=== PATIENT | female | born 1960 | race Caucasian/White ===

== ENCOUNTER → 2021-07-16 01:30 | Outpatient (CLI) | payer MEDICARE, SELFPAY ==
--- NOTE | 2021-07-16 07:50 | DI.RAD_ITS ---
Exam(s) XR HIP RT COMPLETE AP PELVIS EXAM: XR HIP RT COMPLETE AP PELVIS CLINICAL HISTORY: r hip pain, M25.551 TECHNIQUE: COMPARISON: CR PELVIS AP from 06/28/2013 FINDINGS: Two views were obtained. There is a total hip joint replacement position on the left. On the right, there is severe narrowing of the cartilaginous joint space of the hip superiorly. There is flatteni ng of the superior aspect of the femoral head. There are areas of subchondral sclerosis and cyst for mation of the acetabulum and femoral head and there are moderate marginal osteophytes of these bones. IMPRESSION: Severe DJD right hip RADIATION DOSE DELIVERED: Total DLP
== END ==
PROVIDERS: PCP Family Medicine; Visit Provider Family Medicine
DX: M25.551 Pain in right hip (principal); M16.11 Unilateral primary osteoarthritis, right hip; Z96.642 Presence of left artificial hip joint
CPT/HCPCS: 73502

== ENCOUNTER 2021-12-12 11:38 | Outpatient (CLI) | payer MEDICARE, SELFPAY ==
--- NOTE | 2021-12-12 11:15 | DI.RAD_ITS ---
Exam(s) XR PELVIS AP EXAM: XR PELVIS AP CLINICAL HISTORY: right hip DJD TECHNIQUE: COMPARISON: CR XR HIP RT COMPLETE AP PELVIS from 07/16/2021 FINDINGS: AP view of the pelvis was obtained. There is a total hip joint replacement position on the left. Th ere are severe degenerative changes of the right hip with marked loss of the cartilaginous joint spac e and subchondral sclerosis and cyst formation of the femoral head and acetabulum with some deformity of the femoral head superiorly. IMPRESSION: Severe DJD right hip. RADIATION DOSE DELIVERED: Total DLP
== END 2021-12-12 11:39 | disposition home or self-care (01) ==
LOC: DIORS 11:38
PROVIDERS: PCP Family Medicine; Referring Provider Family Medicine; Visit Provider Physician Assistant
DX: M16.11 Unilateral primary osteoarthritis, right hip (principal)
CPT/HCPCS: 99202; 72170

== ENCOUNTER 2022-02-20 02:13 | Outpatient (CLI) | payer MEDICARE, SELFPAY ==
[2022-02-20 13:46] LABS: HCT 42.6 % (36.0-46.0); HGB 13.7 g/dL (11.2-15.7); MCH 28.9 pg (27.0-33.0); MCHC 32.2 % (32.0-36.0); MCV 90 fL (80-95); MPV 10.9 fL (8.0-11.0); Platelet Count 274 10^3/uL (130-400); RBC 4.74 10^6/uL (3.93-5.22); RDW 14.7 % (11.7-14.6); RDW-SD 48.6 fL; WBC 8.62 10^3/uL (4.4-10.8)
[2022-02-20 14:01] LABS: Anion Gap 8.1 mmol/L (3-11); BUN 18 mg/dL (7-18); CO2 28.9 mmol/L (21.0-32.0); CREATININE 0.7 mg/dL (0.55-1.02); Calcium 9.2 mg/dL (8.5-10.1); Chloride 104 mmol/L (98-107); Estimated GFR 97.72 (mL/min/1.73m2); Glucose 110 mg/dL (74-106); Potassium 3.4 mmol/L (3.5-5.1); Sodium 141 mmol/L (136-145)
== END 2022-02-20 02:14 | disposition home or self-care (01) ==
LOC: LBO 02:13
PROVIDERS: PCP Family Medicine; Visit Provider Student in an Organized Health Care Education/Training Program
DX: M16.11 Unilateral primary osteoarthritis, right hip (principal); Z01.818 Encounter for other preprocedural examination
CPT/HCPCS: 36415; 80048; 85027

== ENCOUNTER 2022-03-04 05:52 | Day surgery (SDC) | payer MEDICARE, SELFPAY ==
[2022-03-04] VITALS (12 sets, daily range): BP systolic 107–149; BP diastolic 54–95; PULSE 76–98; RESP 11–18; TEMP 36.2–36.6; O2SAT 95–100; BMI 43.0
[2022-03-04] MEDS: Acetaminophen 500 MG TAB 1000 MG PO (06:38)
[2022-03-04] MEDS: Celecoxib 200 MG CAP 400 MG PO (06:38)
--- NOTE | 2022-03-04 06:51 | W.ANESPRE ---
General Info Date of Service Date Performed: 03/04/22 Height: 5 ft 1.5 in Weight: 104.9 kg Body Mass Index (BMI): 43.0 Surgical Procedure: Operation Date: 03/04/22 07:50 Proposed Procedure Side Surgeon p Hip Total Hip Anterior ACTIS (Standard Sz 4/5) Right Joseluis Wick MD Meds Allergies and Home Medications Allergies Allergy/AdvReac Type Severity Reaction Status Date / Time Latex, Natural Rubber AdvReac Intermediate breaks out Verified 03/04/22 06:20 aripiprazole [From Abilify] AdvReac Headache Verified 03/04/22 06:20 erythromycin base AdvReac N/V Verified 03/04/22 06:20 fluoxetine [From Prozac] AdvReac Giraldo Verified 03/04/22 06:20 quetiapine fumarate AdvReac Headaches Verified 03/04/22 06:20 [From Seroquel] Home Medication Medication Instructions Recorded [id number]-dteiopzx-hyalur 1 ea PO DAILY 05/17/12 ac 375 mg-300 mg-175 mg-2 mg cap Lactobacillus comb 1 tab PO DAILY 03/07/13 [id number] 300 million cell-250 mg capsule (Probiotic and Acidophilus) cholecalciferol (vitamin D3) 10 See Rx Instructions PO DAILY 06/19/20 mcg (400 unit) tablet (Vitamin D3) hydrochlorothiazide 12.5 mg tablet 12.5 mg PO QAM #90 tabs 07/08/21 Current Visit Medications: Current Medications Generic Name Dose Route Start Last Admin Trade Name Freq PRN Reason Stop Dose Admin Acetaminophen 1,000 mg 03/04/22 06:00 03/04/22 06:38 Acetaminophen 500 Mg Tab PO 03/04/22 16:00 1,000 mg PREOP JEANA Administration Celecoxib 400 mg 03/04/22 06:00 03/04/22 06:38 Celecoxib 200 Mg Cap PO 03/04/22 16:00 400 mg PREOP JEANA Administration Tranexamic Acid 1,000 mg/ 60 mls @ 360 mls/hr 03/04/22 06:00 Sodium Chloride IV 03/04/22 16:00 PREOP JEANA Ringer's Solution 1,000 mls @ 80 mls/hr 03/04/22 06:00 IV 04/02/22 23:59 INFUSION JEANA Cefazolin Sodium/Dextrose 2 gm in 50 mls @ 100 mls/hr 03/04/22 06:00 Ancef Duplex IVPB 03/04/22 16:00 PREOP JEANA IV Miscellaneous Supplies 1 each 03/04/22 06:00 Iv Access IV 04/02/22 23:59 DIRECTED JEANA Sodium Chloride 0 ml 03/04/22 06:00 Normal Saline Flush 10 Ml Syr IV 04/02/22 23:59 PRN PRN Sodium Chloride 0 ml 03/04/22 06:00 Normal Saline 10 Ml Vial IJ 04/02/22 23:59 DIRECTED PRN Sterile Water 0 ml 03/04/22 06:00 Water,Injection,Sterile 10 Ml Vial IJ 04/02/22 23:59 DIRECTED PRN PFSH Active Problems Active Problems: Problem Status Onset Code Vitamin D deficiency E55.9 Anxiety and depression F41.8 Decreased libido R68.82 Depressive disorder 10/04/12 F32.9 Exposure to hepatitis C Z20.5 Fatigue R53.83 Increased BMI R63.8 Malignant melanoma of skin C43.9 Smoking history Z87.891 Toenail deformity L60.8 Toenail fungus B35.1 Right hip pain M25.551 Degenerative joint disease of right hip M16.11 Skin lesion L98.9 Medical History Medical History Borderline high cholesterol Cholelithiasis w/out obstruction Cholelithiasis without obstruction Closed fracture of clavicle Dysfunctional uterine bleeding endometrial bx-neg. Pelvic U/S-increased. endometrialstripe; now 1 year w/o a period. Hip pain 10/04/12 Osteoarthrosis; end stage; s/p Left hip Arthroplasty Hip pain (10/04/12) History of ectopic History of fracture of clavicle age 1 History of fracture of clavicle Hx of ectopic Pneumonia 04/15/07 organism unspecified, unspecified bilaterality, unspecified part of lung. Pneumonia, organism unspecified (04/15/07) Unspecified part of closed fracture of clavicle Medical History Comments:: pt. extremely anxious today, states she has been at home the last thirty years with anxiety and depression-so this is a very stressful time for her Surgical History Surgical History (Updated 03/04/22 @ 06:22 by Cathy Dias) Endometrial Biopsy DUB with negative endometrial biopsy, increased endometrial stripe on Provera H/O total cystectomy right axillary region History of bilateral tubal ligation 02/23/07 History of gynecologic surgery endometrial biopsy; DUB w/neg endometrial biopsy, increased endometrial stripe on Provera. History of removal of cyst Right leg - near knee Dr. Darden ~2009 Hx of cholecystectomy PROCEDURES Clavicle fracture at age 1 Removal of right cyst and axillary region. S/P cholecystectomy 02/23/83 Status post THR (total hip replacement) (03/16/13) Done by Dr. Mcpherson with cementless fixation. Tobacco Smoking/Tobacco Use Status: Current every day Tobacco Type: cigarettes Smoking cigarettes per day: 30 Passive smoking exposure: Yes Second hand exposure: Yes Alcohol Alcohol Intake: never Substance Use Substance use: Occasionally Substance use type: marijuana Details: marijuana: t-1, hits off a bowl Vital Signs and Lab Results Vital Signs Most Recent Vital Signs in EMR: Most Recent Vital Signs Temp Pulse Resp BP Pulse Ox 36.6 C 98 H 18 149/95 H 97 03/04/22 06:27 03/04/22 06:27 03/04/22 06:27 03/04/22 06:27 03/04/22 06:27 Lab Results Blood Type / Crossmatch: No Data to Display Complete Blood Count: White Blood Count 8.62 10^3/uL (4.4-10.8) 02/20/22 13:37 Red Blood Count 4.74 10^6/uL (3.93-5.22) 02/20/22 13:37 Hemoglobin 13.7 g/dL (11.2-15.7) 02/20/22 13:37 Hematocrit 42.6 % (36.0-46.0) 02/20/22 13:37 Platelet Count 274 10^3/uL (130-400) 02/20/22 13:37 Complete Metabolic Panel: Sodium 141 mmol/L (136-145) 02/20/22 13:37 Potassium 3.4 mmol/L (3.5-5.1) L 02/20/22 13:37 Chloride 104 mmol/L (98-107) 02/20/22 13:37 Carbon Dioxide 28.9 mmol/L (21.0-32.0) 02/20/22 13:37 BUN 18 mg/dL (7-18) 02/20/22 13:37 Creatinine 0.7 mg/dL (0.55-1.02) 02/20/22 13:37 Est GFR (CKD-EPI 2020) 97.72 (mL/min/1.73m2) 02/20/22 13:37 Calcium 9.2 mg/dL (8.5-10.1) 02/20/22 13:37 Glucose 110 mg/dL (74-106) H 02/20/22 13:37 Liver Function Panel: No Data to Display Coagulation Panel: No Data to Display Cardiac Panel: No Data to Display Arterial Blood Gas: No Data to Display Venous Blood Gas: No Data to Display Pancreas Panel: No Data to Display Thyroid Panel: No Data to Display Infectious Disease: No Data to Display Blood Cultures: No Data to Display Toxicology Panel: No Data to Display Anesthesia Assessment and Plan Anesthesia History Personal History: No History of Anesthesia Complications Family History: No Family History of Anesthesia Complications Exercise Tolerance Exercise Tolerance: Unknown Pertinent Negatives Pertinent Negatives: No Symptoms of GERD Cardiac & Pulmonary Exam Cardiac Exam: Normal S1/S2 Heart Sounds Pulmonary Exam: Clear Bilateral Breath Sounds Implantable Cardiac Device Does patient have a Pacemaker or an ICD?: No Airway Exam Known Difficult Airway: No Mallampati Class: 3 Mouth Opening: Normal (> 3cm) Thyromental Distance: Greater than 3 cm Neck Range of Motion: Full ROM Neck Circumference: Thick Teeth Condition: Generalized Poor Dentition (Missing bottom right molars) ASA Classification ASA Score: ASA 3 Emergency Case?: No NPO Status NPO Status: NPO Clears >2 hours, Solids >8 hours Anesthesia Plan Resuscitation Status: Full Code Anesthesia Technique: Spinal Anesthesia Airway Planned: Natural Airway Pain Management: Intrathecal Analgesia Monitors Used: Standard Monitors
[2022-03-04] MEDS: Lactated Ringers 1,000 ML 80 ML IV (07:00)
--- NOTE | 2022-03-04 07:19 | W.PM.DS.N ---
Date of service: 03/04/22 Time of Service: 11:58 DS: Diagnosis Discharge Diagnosis (1) Degenerative joint disease of right hip: Status: Acute Discharge Plan Disposition Patient Disposition: Home Condition: Good Discharge Details Reason For Visit: Right hip DJD Attending Provider: Joseluis Wick Primary Care Provider: Maritza Conde Home Meds and New Rx's Prescriptions: New celecoxib [Celebrex] 200 mg capsule 200 mg PO BID Qty: 30 0RF aspirin 81 mg tablet,delayed release (DR/EC) 81 mg PO BID 30 Days Qty: 60 0RF acetaminophen 500 mg tablet 500 mg PO Q6H PRN (Reason: pain) Qty: 60 2RF pantoprazole 40 mg tablet,delayed release (DR/EC) 40 mg PO DAILY Qty: 14 0RF dexamethasone 4 mg tablet 4 mg PO DAILY Qty: 2 0RF Rx Instructions: Take one tablet once daily for two days docusate sodium [Colace] 100 mg capsule 100 mg PO BID Qty: 30 0RF oxycodone 5 mg tablet 5 mg PO Q6H PRN (Reason: severe post-operative pain) Qty: 12 0RF Rx Instructions: Take one tablet up to every 6 hours as needed for severe pain Continued hydrochlorothiazide 12.5 mg tablet 12.5 mg PO QAM Qty: 90 4RF glucosam-chond pf-ylkmlj-ma ac 1 EACH capsule 1 ea PO DAILY cholecalciferol (vitamin D3) [Vitamin D3] 10 mcg (400 unit) tablet See Rx Instructions PO DAILY Rx Instructions: For a total of 3000 units daily. aj Probiotic and Acidophilus 1 EACH capsule 1 tab PO DAILY Discharge Instructions Additional Instructions: Total Hip Discharge Instructions Activity: The most important activity is to walk. You should try to take short walks a few times a day. You have no restrictions on movement or positioning, but do not try to force what you do. You will find some stiffness and weakness with hip flexion (lifting your knee). Do not try to strengthen this too early, continue to practice walking and stairs and this will come. - Outpatient physical therapy can be helpful to help return you to a normal gait and improve your flexibility and strength. This can start around 2 weeks. For some patients, it?s not necessary. Usually this is determined at the time of discharge or at the first post-operative visit. - You should wear the YAYA hose on both legs for 2 weeks. Dressing: Keep the surgical dressing in place for at least one week. After the first week it may be removed and replace with light gauze and tape or nothing. It may get wet after 3 days but avoid soaking the dressing. If it gets wet, just lightly pat dry. It is important to always keep some gauze between skin folds, especially when you are sitting. Spend some time with the wound exposed when you are lying flat as the incision does wrinkle onto itself. Medications: - You should take Tylenol and an anti-inflammatory Celebrex as your primary pain control medications. If the Celebrex is too expensive or not covered, please call the office for another alternative (Advil/Ibuprofen or Naproxen/Aleve). - You have been prescribed a stronger pain medication Oxycodone for breakthrough pain, take as needed as prescribed. - You have also been prescribed a stomach acid reduction agent Pantoprozole to help reduce stomach acid and reflux. - You have also been prescribed Decadron to help with post-operative nausea and pain. You will take this for two days starting tomorrow. - You will be taking Aspirin 81mg twice a day for DVT prevention unless instructed otherwise. - If you have constipation you should take Colace (which has been prescribed)or Miralax (which is available [id number]). It takes most people 3-4 days to have a bowel movement. Follow-up: 2 weeks If you have any acute concerns or questions, please do not hesitate to contact the office at [phone]. You may contact Dr. Wick with any questions after hours through the hospital at [phone] or on his cell phone at [phone]. Stand Alone Forms: Anesthesia Discharge Inst., [place] ([facility]) Referrals: Joseluis Wick MD [ [facility] STAFF PHYSICIAN] - Equipment/Supplies: Walker Activity:: Elevate Remove Dressings/Wound Care:: Do Not Remove Shower/Bathe:: Cover Diet:: As Tolerated Discharge Orders Discharge Orders: Discharge Order (Routine); Ordered 03/04/22 Ordered By: Joseluis Wick DS: Summary Time Spent with Patient providing and/or coordinating discharge services: Less than 30 minutes Status at Discharge Functional status at discharge: uses cane/walker Overall status at discharge: patient is progressing back to baseline Mental Status: mental status grossly normal Speech and Movement: speech and movement normal Mood: congruent mood Affect: normal affect Exam Psych Mental Status: mental status grossly normal Speech and Movement: speech and movement normal Mood: congruent mood Affect: normal affect DS: Data Vitals/I&O Vitals and I&O: Vital Signs Temperature 97.9 F 03/04/22 06:27 Pulse 98 H 03/04/22 06:27 Pulse Rhythm Regular 03/04/22 06:27 Respiratory Rate 18 03/04/22 06:27 Blood Pressure 149/95 H 03/04/22 06:27 Pulse Oximetry 97 03/04/22 06:27 Oxygen Delivery Method Room Air 03/04/22 06:27 Oxygen Flow Rate 0 03/04/22 06:27 Pain Level 3 03/04/22 06:27 Intake & Output 03/03/22 03/03/22 03/04/22 11:59 23:59 11:59 Weight 232 lb 15.999 oz 231 lb 4.238 oz PFSH All Active Problems Vitamin D deficiency (Chronic) Anxiety and depression (Chronic) Decreased libido (Chronic) Depressive disorder (Chronic 10/04/12) Exposure to hepatitis C (Chronic) Partner with Hep C Fatigue (Chronic) Increased BMI (Chronic) Malignant melanoma of skin (Chronic) ON THE RIGHT; 2004 Smoking history (Acute) Toenail deformity (Acute) Toenail fungus (Acute) Right hip pain (Acute) Degenerative joint disease of right hip (Acute) Skin lesion (Acute) Medical History Borderline high cholesterol Cholelithiasis w/out obstruction Cholelithiasis without obstruction Closed fracture of clavicle Dysfunctional uterine bleeding endometrial bx-neg. Pelvic U/S-increased. endometrialstripe; now 1 year w/o a period. Hip pain 10/04/12 Osteoarthrosis; end stage; s/p Left hip Arthroplasty Hip pain (10/04/12) History of ectopic History of fracture of clavicle age 1 History of fracture of clavicle Hx of ectopic Pneumonia 04/15/07 organism unspecified, unspecified bilaterality, unspecified part of lung. Pneumonia, organism unspecified (04/15/07) Unspecified part of closed fracture of clavicle Surgical History Endometrial Biopsy DUB with negative endometrial biopsy, increased endometrial stripe on Provera H/O total cystectomy right axillary region History of bilateral tubal ligation 02/23/07 History of gynecologic surgery endometrial biopsy; DUB w/neg endometrial biopsy, increased endometrial stripe on Provera. History of removal of cyst Right leg - near knee Dr. Darden ~2009 Hx of cholecystectomy PROCEDURES Clavicle fracture at age 1 Removal of right cyst and axillary region. S/P cholecystectomy 02/23/83 Status post THR (total hip replacement) (03/16/13) Done by Dr. Mcpherson with cementless fixation. Family History Mother Heart disease CREST Mental disorder depression Father Diabetes Essential hypertension Personal history of malignant neoplasm PANCREATIC Hyperlipidemia Sister Essential hypertension Mental disorder depression Sister Mental disorder deperession Brother Hyperlipidemia Multiple sclerosis Grandfather Personal history of malignant neoplasm LUNG Grandfather No problems noted. Grandmother Heart disease Mental disorder depression Asthma Grandmother No problems noted. Social History Smoking/Tobacco Use Status: Current every day Tobacco Type: cigarettes Tobacco: How many years used: 40 Quit status: considering quitting Second Hand Exposure: Yes Smoking risk assessment performed?: Yes Alcohol Intake: never Drug use: Occasionally Substance use type: marijuana Details: marijuana: t-1, hits off a bowl Caregiver/Support person: Yes Household members: spouse Housing: house Communication Needs: None Do you need help understanding health information?: Rarely Do you think of yourself as: straight/heterosexual Current gender identity: female What is your relationship status?: Panel score (0-1 are the most socially isolated patients): 1 Duration: 15-30 minutes/day Frequency: 5-6 times per week Firearms in home: Yes (KEPT IN CAB[employer]) Firearms unloaded and locked: No Do you feel safe at home: Yes Do you feel safe in your relationship?: Yes Time Spent with Patient Time Spent with Patient: <45 minutes Time was spent: obtaining and/or reviewing separately otained hiistory and referring, communicating with other health hospice care consultant
[2022-03-04] MEDS: ceFAZolin 2 GM/50 ML BAG IVPB (07:35)
--- NOTE | 2022-03-04 09:04 | DI.RAD_ITS ---
Exam(s) XR HIP RT IN OR EXAM: XR HIP RT IN OR CLINICAL HISTORY: total hip TECHNIQUE: 2D and realtime digital imaging was performed. CONTRAST MATERIAL: Refer to procedure report. COMPARISON: CR XR PELVIS AP from 12/12/2021 FINDINGS: Fluoroscopy was provided for Dr. Wick during the performance of a right hip replacement. Please refer to the procedure report for complete details. Ka,r=7.95 mGy IMPRESSION: RADIATION DOSE DELIVERED:
--- NOTE | 2022-03-04 09:27 | W.PM.OP ---
Date of service: 03/04/22 Time of Service: 09:27 Operative Note Operative Note DATE OF PROCEDURE: 03/04/22 PRE-OP DIAGNOSIS: Right Hip Osteoarthritis POST-OP DIAGNOSIS: same PROCEDURE: Right Anterior Total Hip Arthroplasty with Intraoperative Navigation SURGEON: Joseluis Wick COST ACCOUNTING CLERK: Jackelyn Cook ANESTHESIA TYPE: Spinal Refer to Anesthesia Record ESTIMATED BLOOD LOSS: 100 PATHOLOGY: none sent TOURNIQUET TIME: 0 COMPLICATIONS: None Patient was transported to: PACU Patient's condition: stable Implants: 1. Depuy Brandt Acetabular Component, 48mm 2. Depuy Acetabular Liner, 76p90sk 3. Depuy Actis Standard Collared Femoral Stem, Size 4 4. Depuy Altrx Ceramic Femoral Head, Size 32+5mm Indications: I have seen Naheed in clinic for symptoms of hip arthritis, confirmed with radiographic findings. She has exhausted nonoperative methods and was having significant limitations in daily function and desired better function and less pain. I discussed the technical details of a hip replacement. I explained the risks of the procedure to include, but not limited to, bleeding, infection, pain, stiffness, fracture, damage to nerves and vessels, damage to muscles and tendons, loosening, instability, leg length inequality, need for repeat procedure, blood clot and cardiopulmonary demise. Despite these risks, Naheed elected to proceed. Findings: There was significant signs of arthritis throughout the hip. There was complete loss of cartilage from the femoral head and a large floor osteophyte. Procedure Description: Naheed was greeted in the preoperative holding area where the correct side was identified and marked. The consent was reviewed with the patient and signed. The history and physical was updated. All questions were answered. She was taken back to the operating room. A spinal anesthestic was then administered. The feet were wrapped with cast padding and Coban and then placed into the boot liners and then into the boots. Care was taken to protect the skin and make sure the heels were fully down and the boots were stable. The patient was then positioned onto the HANA table. Both legs were held in a neutral position. SCDs were applied. The patient was then slid down onto a peroneal post. Prophylactic antibiotics in the form of Cefazolin were administered. 1g of Tranxemic Acid was given intravenously within 30 minutes of incision. The right leg was then prepped with Chloraprep and draped in a standard fashion. A second prep with Chloraprep was performed prior to placement of a shower-curtain type drape with Iodine impregnated skin protection. A timeout to confirm correct identity, side and site, procedure, allergies, anesthesia, and medical concerns was performed. An obliquely oriented incision was made starting lateral to the ASIS and running distal over the Tensor Fascia Zeny (TFL) muscle belly toward the fibular head, approximately 10cm. The skin and soft tissue was dissected sharply, through Tracy?s fascia, and to the fascia of the TFL. With the fascia and superior border of the IT band identified, the fascia was incised with a new knife just above any perforators from the IT band. The TFL muscle belly was bluntly dissected away from the fascia and moved laterally. The fat between TFL and rectus was identified to ensure the dissection was not within the TFL. Blunt dissection created space between abductors and the capsule and retractor was placed over the lateral femoral neck. The fibers of the rectus femoris tendon were identified and these were freed from the anterior capsule. A second cobra retractor was placed around the medial femoral neck. The TFL was further retracted laterally to show the deep fascia. Careful dissection through this layer identified three main crossing vessels of the lateral femoral circumflex. These were cauterized in multiple locations and then cut without any noticeable bleeding. The TFL was further released bluntly from the deep fascia to expose anterior hip capsule and fat The Clarke orthopaedic retractor was then placed beneath the TFL and against sartorius and medial soft tissues to protect and retract the soft tissues. A T-capsulotomy was then performed starting at the superior lateral acetabulum and moving distally to the intertrochanteric ridge. These capsular flaps were tagged with a No. 1 Ethibond and elevated from within. The capsular flaps were released to the shoulder of the lateral neck and to the lesser trochanter to give excellent visualization of the proximal femur. A neck osteotomy was performed using an oscillating saw based on preoperative templates. This cut started in the shoulder and of the lateral neck and exited medially. The saw was at all times directed medially to avoid injury to the greater trochanter. Gross traction was applied to the leg and the osteotomy opened. The femoral head was removed with a corkscrew, making sure to protect the TFL on its exit. Traction was released after head removal. This was measured on the back table to determine the starting reamer size. Portions of the rectus obscuring visualization were minimally elevated off the superior acetabulum. An anterior retractor was placed over the anterior wall between capsule and labrum and attached to the Gripper retraction system. The femur was rotated to 90 degrees and medial capsule was fully released until the lesser trochanter was palpable and visible; the femur was returned to 30 degrees. A posterior retractor was placed similarly between capsule and labrum. This provided excellent visualization. The contents of the cotyloid fossa were removed with electrocautery and the labrum was removed with a knife. A majority of the anterior labrum was calcified. There was a notable floor osteophyte. There was significant chondromalacia of the superior acetabulum. Acetabular reaming began with a 42mm reamer. This first reaming was directed anterior to posterior and medial to get down to the true floor. This was inspected and reamed until the true floor was reached. The anterior retractor was then released and entry and exit was provided by traction on the capsular flaps. I then reamed sequentially up to a 48mm reamer where good fit was obtained. The larger reamers were oriented based on anatomical reference of the anterior and lateral staton to ensure proper abduction and anteversion. Positioning and size was confirmed with the fluoroscopy. A 48mm Depuy Brandt acetabular component was selected. The acetabulum was reamed around the periphery with the selected acetabular size to prevent a rim fit. The deep tissues were irrigated. The acetabular component was then impacted in a position of about 40-45 degrees of abduction and 15-20 degrees of anteversion, using the patient?s anatomy as the ultimate landmark. Fluoroscopy was used to confirm this. There was excellent transcription specialist of the acetabular component and the inserting handle was removed. The acetabular liner, Depuy [id number] polyethylene liner, was inserted and lined up with the tines of the acetabular component. There was no soft tissue interposition. The liner was then impacted into position and confirmed to be well-seated. A portion of the polina-articular cocktail was then injected around the acetabulum into the capsule and periosteum. This cocktail consisted of 123mg of Ropivacaine, 0.25mg of Epinephrine, 0.04mg of Clonidine, and 15mg of Ketorolac, diluted to 50cc. The leg was rotated to 120 degrees. Any remaining medial capsule was released until the lesser trochanter was easily palpable. A retractor was placed medially. The lateral capsule was further released into the shoulder to allow access to the greater trochanter. A Norris retractor was placed over the greater trochanter which allowed the trochanter to flip in front of the capsule for excellent exposure. The leg was brought down into maximal extension and 20 degrees of adduction while ensuring there was no impingement on the acetabulum. Any remnant capsule within the trochanter was released. Piriformis and obturator externis were identified and protected. There was excellent access to the proximal femur. The lateral neck remnant was removed with a rongeur. A blunt canal probe was used to identify the canal and trajectory for later broaching. A box osteotome initiated the broach course. Broaching then began with a starting Actis broach. This was inserted manually around the trochanter and into the canal before mallet blows. The broach was seated to a few millimeters below the cut level based on the neck cut and the preoperative template. Sequential broaching was continued with the [employer] pneumatic broaching device until a tight fit was obtained with good rotational control of the femur. A trial standard neck was inserted along with a +5 trial head. The leg was brought out of extension and adduction and then reduced with traction and internal rotation. The leg was stable anteriorly in a position of 30 degrees of extension and 90 degrees of external rotation. Fluoroscopy was used to ensure there was no fracture and the stem was seated well. Leg lengths were checked with an AP pelvis and pelvic reference points. [employer] navigation system was used to confirm appropriate positioning and leg length and offset. This showed too much leg length, and thus the broach would be advanced 5mm. Once content with the desired offset and leg lengths, the leg was brought back into extension, external rotation and adduction. The periosteum and surrounding tissue was injected with remaining portion of the polina-articular cocktail. The proximal femur was irrigated as well as the deep tissues. The GIROPTICuy Actis Standard collared stem, size 4, was then manually inserted into the proximal femur making sure to control rotation. It was then malleted into position with light blows, giving breaks to allow bone expansion and decrease risk of fracture. The selected Depuy Altrx Ceramic Head, size 32+5mm, was then placed onto the clean and dry trunnion and secured with impaction onto the tapered fit. The leg was brought back out of extension and adduction and reduced with traction and internal rotation. Stability was confirmed with no shuck at 90 degrees of external rotation and 30 degrees of extension. No impingement through range of motion arc. Final x-ray images were obtained with fluoroscopy to confirm adequate positioning and no intraoperative fracture. The deep tissues were thoroughly irrigated with Surgiphor, betadine solution. This was allowed to sit in the wound for 3 minutes before being thoroughly irrigated out with normal saline. The capsule was then reapproximated with the previously placed Ethibond sutures. The TFL fascia was finally closed with a No. 2 Stratafix, barbed suture. Deep tissues were then reapproximated with 0 Vicryl and a running 2-0 Vicryl. The skin was closed with a running 4-0 Monocryl in a subcuticular fashion. This was reinforced with skin glue. A Mepilex silver dressing was applied. At the end of the case, all counts were correct. Naheed was transferred to the hospital bed without difficulty and suffering no apparent complication. Naheed has a good prognosis. Physical therapy will start today and without restrictions, weight-bearing as tolerated. Aspirin 81mg BID will be used for DVT prophylaxis.
[2022-03-04] MEDS: diazePAM 10 MG/2 ML SYR 5 MG IVP (09:55)
[2022-03-04] MEDS: fentaNYL 100 MCG/2 ML VIAL IVP ×2 (10:22→10:32)
[2022-03-04] MEDS: oxyCODONE 5 MG TAB PO (11:25)
--- NOTE | 2022-03-04 12:20 | PT.INIE ---
Date of service: 03/04/22 Time of Service: 12:20 PT Notes Visit Reasons: Right hip DJD Physical Therapy Day Surgery Initial Evaluation Date: 03/04/2022 Referring Doctor: RILEY Ernst PT Orders: PT CONSULT: S/P Ortho surgery Precautions: WBAT on the R LE with AD. Patient Profile/Admitting Diagnosis: Naheed is a 61-year-old female with degenerative joint disease of the right hip and status post right anterior total hip arthroplasty on postoperative day 0. PMHX: Medical History?(Updated 02/20/22 @ 14:28 by Jackelyn Cook) Borderline high cholesterol Cholelithiasis w/out obstruction Cholelithiasis without obstruction Closed fracture of clavicle Dysfunctional uterine bleeding endometrial bx-neg. Pelvic U/S-increased. endometrialstripe; now 1 year w/o a period. Hip pain 10/04/12 Osteoarthrosis; end stage; s/p Left hip ArthroplastyHip pain (10/04/12) History of ectopic History of fracture of clavicle age 1 History of fracture of clavicle Hx of ectopic Pneumonia 04/15/07 organism unspecified, unspecified bilaterality, unspecified part of lung. Pneumonia, organism unspecified (04/15/07) Unspecified part of closed fracture of clavicle Surgical History?(Updated 02/20/22 @ 14:28 by Jackelyn Cook) Endometrial Biopsy DUB with negative endometrial biopsy, increased endometrial stripe on Provera H/O total cystectomy right axillary regionHistory of bilateral tubal ligation 02/23/07 History of gynecologic surgery endometrial biopsy; DUB w/neg endometrial biopsy, increased endometrial stripe on Provera. History of removal of cyst Right leg - near knee Dr. Darden ~2009 PROCEDURES Clavicle fracture at age 1 Removal of right cyst and axillary region. S/P cholecystectomy 02/23/83 Status post THR (total hip replacement) (03/16/13) Done by Dr. Mcpherson with cementless fixation Social History/Home Situation: Lives with in a private home with 5 steps to enter with rails on B sides. Independent with all aspects of ADLs prior to admission except for when her pain level with become too much for her and she would need the use of her standard walker. Equipment Owned/DME: Standard walker Subjective: Reports feeling tight and needing to move and stretch. Happy to get out bed to walk. Objective: General Observation: Supine in bed. TEDS to B legs. Mepilex Ag over surgical incision. Mental Status: Alert and oriented x4 Pain: 4/10 in surgical incision ROM: Right Lower Extremity: Hip flexion WFL. Hip abduction WFL. Knee flexion WFL. Ankle dorsiflexion WFL. Ankle plantarflexion WFL. Left Lower Extremity: Hip flexion WFL. Hip abduction WFL. Knee flexion WFL. Ankle dorsiflexion WFL. Ankle plantarflexion WFL. Strength: Right Lower Extremity: Hip flexors 5/5. Hip abductors 5/5. Knee flexors 5/5. Knee extensors 5/5. Ankle dorsiflexors 5/5. Ankle plantarflexors 5/5. Left Lower Extremity:Hip flexors 5/5. Hip abductors 5/5. Knee flexors 5/5. Knee extensors 5/5. Ankle dorsiflexors 5/5. Ankle plantarflexors 5/5. Sensation: Intact as to pain and light pressure and BLE Bed Mobility/Transfers: Supine to sit stand by assist Sit to stand contact-guard assist Stand to sit stand by assist Bed to chair stand by assist Gait: 150 feet using FWW with stand by assist and wheelchair follow of [facility] for safety. Step-through gait pattern. Reported decreased pain to 2-3/10. No loss of balance. No shortness of breath. Denies headache, chest pain, and lightheadedness throughout session. Stairs: Completed 6 x 4 inch steps and 4 x 6 inch steps holding onto bilateral rails with step to gait pattern requiring standby assist with no report of increased pain level. Balance: Static Sitting: Normal Dynamic Sitting: Normal Static Standing: Fair Dynamic Standing: Fair THERA EX: Supine gluteal sets x 5 Supine heels slides x 5 Supine quadriceps x 5 Supine ankle pumps x 10 Seated LAQ x 5 Special Tests: Mobility Limitations Standardized Measure [facility] AM-PAC 6 clicks Basic Mobility Inpatient Short Form: Raw Score: 24 CMS Score: 0% deficit Informed Consent/Education: Patient instructed in purpose of PT consult. Packet containing LIZET exercise protocol has been given to patient. Education and training on initial set of exercises that can be done at home have been completed with patient. Assessment: Patient requires the use of a front wheeled walker for mobility ADL performance to maximize independence and reduce fall risk. Patient presents with clinical signs and symptoms consistent with current/admitting diagnoses that have resulted to mobility limitations, gait instability, generalized weakness, and impairment of motor control as demonstrated by the following impairment level findings: 1. Decreased strength to right hip major muscle groups 2. Impaired standing balance Impairments are contributing to the following functional limitations: 1. Inability to safely ambulate without assistive device 2. Increase completion time for mobility ADL performance 3. Increased fall risk Patient is assessed as a 67737 moderate complexity based on the following: History: 61-year-old female with impairment level findings, functional limitations, and past medical history as indicated above Examination: Demonstrable impairment in strength, balance, and mobility level with underlying impairments and functional limitations as documented above Presentation: Evolving Decision Makin moderate complexity Goals: N/A. PT evaluation and 1-2 treatment sessions only for functional mobility training using recommended AD and for HEP instruction. Plan of Care/Treatment Plan: N/A. PT evaluation and 1-2 treatment session only for functional mobility training using recommended AD and for HEP instruction. DISCHARGE RECOMMENDATIONS: [] Home with no services [] [] Home with services [specify] [X] Home with outpatient PT. Home when medically cleared by orthopedic surgeon. Recommend outpatient PT services in order to optimize functional mobility outcomes and facilitate return to independent community ambulation without an assistive device. [] SNF for continued rehabilitation [] [] Alf Care [] [] SNF versus LTC based on ability to participate and progress [] TREATMENT CODE/TIME: 13004 x 20 minutes, 79923 x 15 minutes, 57483 x 13 minutes beginning at 12:20 PM. Thank you for the opportunity to participate in the care of this patient. Michelle Lopez PT, DPT, CLT [facility] [place], [place]
--- NOTE | 2022-03-04 13:12 | W.ANESPOSTOP ---
Postoperative Evaluation Date, Time and Location Date Performed: 03/04/22 Time Performed: 13:12 Patient Location: Day Surgery Unit Vital Signs Most Recent Imported Vital Signs: Most Recent Vital Signs Temp Pulse Resp BP Pulse Ox 36.4 C L 81 16 131/79 97 03/04/22 12:15 03/04/22 12:15 03/04/22 12:15 03/04/22 12:15 03/04/22 12:15 Pain Score Most Recent Pain Score: Most Recent Pain Score Pain Level 4 03/04/22 12:15 Assessment Mental Status: Awake (Alert & Oriented to Patient Baseline) Airway and Respiratory Function: Patent airway with normal (patient baseline) respiratory exam Cardiovascular Function: Hemodynamically Stable Hydration Status: Adequately Hydrated Nausea & Vomiting: No Nausea or Vomiting Pain: Pain is tolerable per patient (Level 2-3 lower back) Peripheral Nerve Block: Patient did not receive a nerve block
== END 2022-03-04 13:47 | disposition home or self-care (01) ==
PROVIDERS: PCP Family Medicine; Visit Provider Student in an Organized Health Care Education/Training Program
PROC: (CPT 27130; principal; 2022-03-04 07:30)
DX: M16.11 Unilateral primary osteoarthritis, right hip (principal); E55.9 Vitamin D deficiency, unspecified
CPT/HCPCS: 20985; 27130; C1776; 97110; 97162; 97530; 73501; J0690; J1100; J2250; J2405; J2704; J3010; J3360

== ENCOUNTER 2022-03-17 10:35 | Outpatient (CLI) | payer MEDICARE, SELFPAY ==
--- NOTE | 2022-03-17 10:30 | DI.RAD_ITS ---
Exam(s) XR HIP RT COMPLETE AP PELVIS EXAM: XR HIP RT COMPLETE AP PELVIS INDICATION: 1ST POST OP L LIZET. COMPARISON: CR XR PELVIS AP from 12/12/2021 XA XR HIP RT IN OR from 03/04/2022 TECHNIQUE: 2D digital imaging was performed. Two views. FINDINGS: Bilateral hip prostheses show satisfactory alignment. Bony lucencies.. DATA REPOSITORY: RADIATION DOSE DELIVERED:
== END 2022-03-17 10:36 | disposition home or self-care (01) ==
LOC: DIORS 10:35
PROVIDERS: PCP Family Medicine; Referring Provider Family Medicine; Visit Provider Student in an Organized Health Care Education/Training Program
DX: Z96.641 Presence of right artificial hip joint (principal); Z47.1 Aftercare following joint replacement surgery
CPT/HCPCS: 73502

== ENCOUNTER → 2022-04-14 11:00 | Outpatient (BNVA) | payer MEDICARE, SELFPAY | PROVIDERS: PCP Family Medicine; Visit Provider Student in an Organized Health Care Education/Training Program | DX: Z47.1 Aftercare following joint replacement surgery (principal); Z96.641 Presence of right artificial hip joint ==

== ENCOUNTER 2023-11-03 10:02 | Outpatient (CLI) | payer MEDICARE, SELFPAY ==
[2023-11-03 12:21] LABS: HCT 48.8 % (36.0-46.0); HGB 15.6 g/dL (11.2-15.7); MCV 91 fL (80-95); MPV 11.7 fL (8.0-11.0); Platelet Count 247 10^3/uL (130-400); RBC 5.38 10^6/uL (3.93-5.22); RDW 15.1 % (11.7-14.6); RDW-SD 50.2 fL
[2023-11-03 13:09] LABS: ALT 36 U/L (14-59); AST 20 U/L (15-37); Albumin 3.4 g/dL (3.4-5.0); Alkaline Phosphatase 64 U/L (46-116); Anion Gap 12.5 mmol/L (3-11); BUN 12 mg/dL (7-18); Bilirubin, Total 0.26 mg/dL (0.2-1.0); CO2 24.5 mmol/L (21.0-32.0); CREATININE 0.8 mg/dL (0.55-1.02); Calcium 9.4 mg/dL (8.5-10.1); Chloride 103 mmol/L (98-107); Estimated GFR 82.23 (mL/min/1.73m2); Glucose 116 mg/dL (74-106); Potassium 3.5 mmol/L (3.5-5.1); Sodium 140 mmol/L (136-145); Total Protein 7.8 g/dL (6.4-8.2); Vitamin B12 281 pg/mL (193-986)
[2023-11-03 19:36] LABS: Hepatitis C Ab w Rflx HCV PCR Negative (Negative)
== END 2023-11-03 10:03 | disposition home or self-care (01) ==
PROVIDERS: PCP Family Medicine; Referring Provider Family Medicine; Visit Provider Family Medicine
DX: I10 Essential (primary) hypertension (principal); F41.8 Other specified anxiety disorders; F32.9 Major depressive disorder, single episode, unspecified; Z20.5 Contact with and (suspected) exposure to viral hepatitis; R09.02 Hypoxemia; E11.9 Type 2 diabetes mellitus without complications
CPT/HCPCS: 36415; 80053; 85027; 86803; 82607; 83036

== ENCOUNTER 2024-06-22 01:37 | Outpatient (CLI) | payer MEDICARE, SELFPAY ==
[2024-06-22 13:01] LABS: ALT 29 U/L (14-59); AST 18 U/L (15-37); Albumin 3.2 g/dL (3.4-5.0); Alkaline Phosphatase 67 U/L (46-116); Anion Gap 6.6 mmol/L (3-11); BUN 16 mg/dL (7-18); Bilirubin, Total 0.2 mg/dL (0.2-1.0); CO2 31.4 mmol/L (21.0-32.0); CREATININE 0.8 mg/dL (0.55-1.02); Calcium 9.3 mg/dL (8.5-10.1); Chloride 105 mmol/L (98-107); Estimated GFR 81.72 (mL/min/1.73m2); Glucose 112 mg/dL (74-106); Potassium 3.5 mmol/L (3.5-5.1); Sodium 143 mmol/L (136-145); Total Protein 7.5 g/dL (6.4-8.2); Vitamin B12 1314 pg/mL (193-986); Vitamin D 25 Total 51 ng/mL (30-100)
== END 2024-06-22 01:38 | disposition home or self-care (01) ==
LOC: LOS 01:37
PROVIDERS: PCP Family Medicine; Visit Provider Family Medicine
DX: I10 Essential (primary) hypertension (principal); E53.8 Deficiency of other specified B group vitamins; E55.9 Vitamin D deficiency, unspecified
CPT/HCPCS: 36415; 80053; 82306; 82607